=== PATIENT | female | born 1935 | race Hispanic/Latino ===

== ENCOUNTER → 2024-01-26 | Outpatient (CLI) | payer MEDICARE ==
[2024-01-26 15:42] LABS: BASOPHILS # (AUTO) 0.03 K/uL (0.00-0.20); BASOPHILS % (AUTO) 0.7 % (0.0-5.0); EOSINOPHILS # (AUTO) 0.11 K/uL (0.00-0.70); EOSINOPHILS % (AUTO) 2.7 % (0.0-8.0); HEMATOCRIT 37.2 % (36-48); IMMATURE GRANULOCYTE ABSOLUTE 0.01 K/uL (0-1); LYMPHOCYTES # (AUTO) 1.1 K/uL (1.0-4.8); LYMPHOCYTES % (AUTO) 27.3 % (21.0-51.0); MEAN CORPUSCULAR HEMOGLOBIN 31.3 pg (27.0-33.0); MEAN CORPUSCULAR HGB CONC 33.1 g/dL (32.0-36.0); MEAN CORPUSCULAR VOLUME 94.7 fL (79-99); MONOCYTES # (AUTO) 0.4 K/uL (0.1-1.0); MONOCYTES % (AUTO) 9.4 % (3.0-13.0); NEUTROPHILS # (AUTO) 2.5 K/uL (1.8-7.7); NEUTROPHILS % (AUTO) 59.7 % (40.0-77.0); PLATELET COUNT (AUTO) 102 K/uL (130-400); RED BLOOD CELL COUNT(AUTO) 3.93 MIL/uL (4.00-5.50); RED CELL DISTRIBUTION WIDTH 14.2 % (11.0-15.5); WHITE BLOOD COUNT (AUTO) 4.1 K/uL (4.8-10.8)
[2024-01-26 15:59] LABS: ALBUMIN 3.5 g/dL (3.5-5.0); BILIRUBIN,TOTAL 0.5 mg/dL (0.2-1.0); CREATININE 0.7 mg/dL (0.5-1.0); POTASSIUM 3.7 mmol/L (3.5-5.1); TOTAL PROTEIN, SERUM 6.6 g/dL (6.0-8.3)
[2024-01-26 16:02] LABS: INR 1.1 (0.85-1.15); PROTHROMBIN TIME 11.8 SEC (9.6-11.6)
[2024-01-26 16:03] LABS: PARTIAL THROMBOPLASTIN TIME 26.5 SEC (26.3-35.5)
== END | disposition home or self-care (01) ==
LOC: RAH 14:33
PROVIDERS: ATTEND Internal Medicine Gastroenterology
DX: R63.4 Abnormal weight loss (principal); R93.2 Abnormal findings on diagnostic imaging of liver and biliary tract
CPT/HCPCS: 36415; 71046; 80053; 82105; 85025; 85610; 85730

== ENCOUNTER → 2024-02-01 | Outpatient (CLI) | payer MEDICARE ==
[~2024-02-01] MED LIST: IOHEXOL 350 MG/ML 100ML INFUS..BTL IV ONE
== END | disposition home or self-care (01) ==
LOC: RAH 08:41
PROVIDERS: ATTEND Internal Medicine Gastroenterology
DX: K76.89 Other specified diseases of liver (principal); K80.20 Calculus of gallbladder without cholecystitis without obstruction; R93.2 Abnormal findings on diagnostic imaging of liver and biliary tract
CPT/HCPCS: 74170; Q9967; 74178

== ENCOUNTER 2024-09-12 19:46 | Emergency (ER) | payer MEDICARE ==
[~2024-09-12] VITALS: Ht 152.4 cm; Wt 44.0 kg
--- NOTE | 2024-09-12 20:41 | HMCIMG ---
CT MAXILLOFACIAL W/O CONTRAST Indication: FALL Technique: Multiple thin section axial images were performed through the face and paranasal sinuses. Coronal reconstructions were performed in soft tissue and bone windows, as well as sagittal reconstructions. CT Dose Index (CTDI): 22.11 mGy Dose Length Product (DLP): 450.8 total mGy Findings: Paranasal sinuses are unremarkable. There is no evidence of facial fracture. Left frontal subcutaneous hematoma without underlying fractures. Visualized intracranial contents are unremarkable. Impression: Left frontal subcutaneous hematoma without underlying fractures. This study was performed using dose reduction techniques to include automated exposure control and/or adjustment of the mA and/or kV according to patient size.
--- NOTE | 2024-09-12 21:08 | HMCIMG ---
Exam Type: KNEE 3VWS RT Clinical Information: FALL Comparison: None Findings: There is osteopenia. The examination is otherwise unremarkable. No fractures or dislocations are seen. No radiopaque foreign bodies are noted. Soft tissues are preserved. IMPRESSION: Osteopenia. Otherwise normal exam.
[2024-09-12 21:21] LABS: BASOPHILS # (AUTO) 0.02 K/uL (0.00-0.20); BASOPHILS % (AUTO) 0.4 % (0.0-5.0); EOSINOPHILS # (AUTO) 0.05 K/uL (0.00-0.70); EOSINOPHILS % (AUTO) 0.9 % (0.0-8.0); IMMATURE GRANULOCYTE ABSOLUTE 0.01 K/uL (0-1); LYMPHOCYTES # (AUTO) 0.9 K/uL (1.0-4.8); LYMPHOCYTES % (AUTO) 15.8 % (21.0-51.0); MEAN CORPUSCULAR HEMOGLOBIN 30.9 pg (27.0-33.0); MEAN CORPUSCULAR VOLUME 90.9 fL (79-99); MONOCYTES # (AUTO) 0.5 K/uL (0.1-1.0); MONOCYTES % (AUTO) 8.4 % (3.0-13.0); NEUTROPHILS # (AUTO) 4.1 K/uL (1.8-7.7); NEUTROPHILS % (AUTO) 74.3 % (40.0-77.0); PLATELET COUNT (AUTO) 90 K/uL (130-400); RED BLOOD CELL COUNT(AUTO) 3.85 MIL/uL (4.00-5.50); RED CELL DISTRIBUTION WIDTH 13.8 % (11.0-15.5); WHITE BLOOD COUNT (AUTO) 5.5 K/uL (4.8-10.8)
[2024-09-12 21:33] LABS: CREATININE 0.7 mg/dL (0.5-1.0); POTASSIUM 3.7 mmol/L (3.5-5.1)
--- NOTE | 2024-09-12 21:41 | HMCIMG ---
Exam Type: CT HEAD/BRAIN W/O CONTRAST Clinical Information: FALL Comparison: None CT Dose Index (CTDI): 57.33 mGy Dose Length Product (DLP): 956.79 total mGy-cm Findings: The examination shows atrophy. There is low attenuation throughout the periventricular white matter locations, consistent with chronic small vessel ischemic changes. No acute intra- or extra-axial fluid collections are seen. There is no evidence of acute or chronic hemorrhage. There is no mass effect or shift of midline structures. There are no areas to suggest acute infarct. The skull windows show no significant abnormalities. Left frontal subcutaneous hematoma without underlying fractures. IMPRESSION: 1. ATROPHY AND CHRONIC SMALL VESSEL ISCHEMIC CHANGES. This study was performed using dose reduction techniques to include automated exposure control and/or adjustment of the mA and/or kV according to patient size.
--- NOTE | 2024-09-12 22:13 | ERN ---
ED Note History of Present Illness Stated Complaint: C/O PAIN TO HEAD AND KNEES AFTER TRIPPING AND FALL Chief Complaint: Mechanical Fall Time Seen by MD: 19:57 Time Seen by Midlevel: 20:00 Dictation: 88-YEAR-OLD FEMALE WITH NO PAST MEDICAL HISTORY COMING IN AFTER A MECHANICAL FALL. PATIENT STATES SHE WAS TRYING TO GO UP A STEP WITHOUT HER CANE TRIPPED OVER THE STEP FELL FORWARD. NO LOC, PATIENT DENIES TAKING ANY BLOOD THINNERS. PATIENT IS COMPLAINING OF LEFT FRONTAL SCALP HEMATOMA AND BILATERAL KNEE PAIN. PER PATIENT THE INCIDENT HAPPENED AT 11:00 A.M., DAUGHTER CAME IN TO SEE HER LATER IN THE DAY AND THAT IS WHEN SHE SAW THE HEMATOMA AND DECIDED TO BRING HER IN FOR EVALUATION. PATIENT STATES AFTER HER FALL SHE CONTINUED HER ADLS WITH NO COMPLAINTS. Allergies: Coded Allergies: No Allergy Information Available (Verified Allergy, 05/17/12) Past Medical History Past Medical History: Gallstones, Other Additional Past Medical Hx: HX OF LOW PLATELETS Surgical History: None Review of System Dictation CONSTITUTIONAL: NEGATIVE FOR FEVER,CHILLS, AND WEIGHT LOSS EYES: NEGATIVE FOR INJURY, PAIN,REDNESS, AND DISCHARGE ENT: NEGATIVE FOR INJURY, FALLING TO LEFT EYE CARDIOVASCULAR: NEGATIVE FOR CHEST PAIN, PALPITATIONS, AND EDEMA RESPIRATORY: NEGATIVE FOR SHORTNESS OF BREATH, COUGH, AND WHEEZING, ABDOMEN/GI: NEGATIVE FOR ABDOMINAL PAIN, NAUSEA, VOMITING, DIARRHEA, AND CONSTI PATION BACK: NEGATIVE FOR INJURY AND PAIN : NEGATIVE FOR INJURY, BLEEDING AND DISCHARGE MS/EXTREMITY: NEGATIVE FOR INJURY AND DEFORMITY SKIN: NEGATIVE FOR RASH, AND DISCOLORATION NEURO: NEGATIVE FOR HEADACHE, WEAKNESS, NUMBNESS, TINGLING, AND SEIZURE PSYCH: NEGATIVE FOR SUICIDE IDEATION, HOMICIDAL IDEATION, AND HALLUCINATIONS Review of Systems: was completed Initial Vital Sign VS Vital Signs Date Time Temp Pulse Resp B/P (MAP) Pulse Ox O2 Delivery O2 Flow Rate FiO2 09/12/24 19:48 99.5 85 20 190/101 98 Room Air Physical Exam Dictation GENERAL: AWAKE, ALERT, NAD HEAD/FACE: A LEFT FRONTAL SCALP HEMATOMA EYES: PERRL, EOMI, VISION AT BASELINE, PERIORBITAL SWELLING, NO VISION CHANGES ACCORDING TO PATIENT ENT: ORAL CAVITY CLEAR, TMS CLEAR, NO SIGNS OF INFECTION NECK: TRACHEA MIDLINE, SUPPLE, NO NUCHAL RIGIDITY CARDIOVASCULAR: RRR, NORMAL S1/S2, NO MRGS, NO JVD RESPIRATORY: CTAB, NO RESPIRATORY DISTRESS, NO RALES OR WHEEZES ABDOMEN: SOFT, NON-TENDER, NON-DISTENDED, NORMAL BOWEL SOUNDS, NO GUARDING OR REBOUND. SKIN: WARM, DRY, NORMAL TURGOR, NO RASH MS/EXTREMITY: PULSES EQUAL, NO CYANOSIS, NEUROVASCULAR INTACT, FROM NEURO: COAX4, GCS 15, STRENGTH 5/5, CN 2-12 INTACT, NORMAL CEREBELLAR EXAM, NORMAL GAIT, PSYCH: NORMAL BEHAVIOR, MOOD, AND AFFECT NORMAL Results (Laboratory/Radiology) Laboratory/Radiology Laboratory Tests Test 09/12/24 21:15 White Blood Count 5.5 K/uL (4.8-10.8) Red Blood Count 3.85 MIL/uL (4.00-5.50) L Hemoglobin 11.9 g/dL (12.0-16.0) L Hematocrit 35.0 % (36-48) L Mean Corpuscular Volume 90.9 fL (79-99) Mean Corpuscular Hemoglobin 30.9 pg (27.0-33.0) Mean Corpuscular Hemoglobin Concent 34.0 g/dL (32.0-36.0) Red Cell Distribution Width 13.8 % (11.0-15.5) Platelet Count 90 K/uL (130-400) L Mean Platelet Volume 11.5 fL (7.5-10.5) H Immature Granulocyte % (Auto) 0.2 % (0-1) Neutrophils (%) (Auto) 74.3 % (40.0-77.0) Lymphocytes (%) (Auto) 15.8 % (21.0-51.0) L Monocytes (%) (Auto) 8.4 % (3.0-13.0) Eosinophils (%) (Auto) 0.9 % (0.0-8.0) Basophils (%) (Auto) 0.4 % (0.0-5.0) Neutrophils # (Auto) 4.1 K/uL (1.8-7.7) Lymphocytes # (Auto) 0.9 K/uL (1.0-4.8) L Monocytes # (Auto) 0.5 K/uL (0.1-1.0) Eosinophils # (Auto) 0.05 K/uL (0.00-0.70) Basophils # (Auto) 0.02 K/uL (0.00-0.20) Absolute Immature Granulocyte (auto 0.01 K/uL (0-1) Nucleated Red Blood Cells 0.0 % (0.0-0.19) Sodium Level 142 mmol/L (136-145) Potassium Level 3.7 mmol/L (3.5-5.1) Chloride Level 104 mmol/L (101-111) Carbon Dioxide Level 34 mmol/L (21-32) H Blood Urea Nitrogen 14 mg/dL (7-18) Creatinine 0.7 mg/dL (0.5-1.0) Glomerular Filtration Rate Calc 84 mL/min (>90) Random Glucose 115 mg/dL (70-105) H Total Calcium 9.2 mg/dL (8.5-10.1) Labs Reviewed?: Yes CT Scan Comment: [place] [address] [address] IMAGING REPORT Signed PATIENT: NEMO STAHL MR#: [id number] : 1935 SEX: F AGE: 88 LOCATION: ED ORDER 02 STATUS: REG [facility] REPORT#: [id number] SERVICE 01 REASON: FALL ORDERING PHYSICIAN: AUGUST GOLDEN NP PROCEDURE: MAXFACI WO - CT MAXILLOFACIAL W/O CONTRAST CT MAXILLOFACIAL W/O CONTRAST Indication: FALL Technique: Multiple thin section axial images were performed through the face and paranasal sinuses. Coronal reconstructions were performed in soft tissue and bone windows, as well as sagittal reconstructions. CT Dose Index (CTDI): 22.11 mGy Dose Length Product (DLP): 450.8 total mGy Findings: Paranasal sinuses are unremarkable. There is no evidence of facial fracture. Left frontal subcutaneous hematoma without underlying fractures. Visualized intracranial contents are unremarkable. Impression: Left frontal subcutaneous hematoma without underlying fractures. This study was performed using dose reduction techniques to include automated exposure control and/or adjustment of the mA and/or kV according to patient size. DICTATED BY: JOE EGAN MD DATE: 09/12/242037 ELECTRONICALLY SIGNED BY: JOE EGAN MD DATE: 09/12/242040 [place] [address] [id number] IMAGING REPORT Signed PATIENT: NEMO STAHL MR#: [id number] : 1935 SEX: F AGE: 88 LOCATION: ED ORDER 02 STATUS: REG ER [facility] REPORT#: [id number] SERVICE 01 REASON: FALL ORDERING PHYSICIAN: AUGUST GOLDEN NP PROCEDURE: KNEE 3V RT - KNEE 3VWS RT Exam Type: KNEE 3VWS RT Clinical Information: FALL Comparison: None Findings: There is osteopenia. The examination is otherwise unremarkable. No fractures or dislocations are seen. No radiopaque foreign bodies are noted. Soft tissues are preserved. IMPRESSION: Osteopenia. Otherwise normal exam. DICTATED BY: JOE EGAN MD DATE: 09/12/242105 ELECTRONICALLY SIGNED BY: JOE EGAN MD DATE: 09/12/242107 [address] [address] IMAGING REPORT Signed PATIENT: NEMO STAHL MR#: [id number] : 1935 SEX: F AGE: 88 LOCATION: ED ORDER 02 STATUS: REG ER REPORT#: [id number] SERVICE 01 REASON: FALL ORDERING PHYSICIAN: AUGUST GOLDEN NP PROCEDURE: HEAD WO - CT HEAD/BRAIN W/O CONTRAST Exam Type: CT HEAD/BRAIN W/O CONTRAST Clinical Information: FALL Comparison: None CT Dose Index (CTDI): 57.33 mGy Dose Length Product (DLP): 956.79 total mGy-cm Findings: The examination shows atrophy. There is low attenuation throughout the periventricular white matter locations, consistent with chronic small vessel ischemic changes. No acute intra- or extra-axial fluid collections are seen. There is no evidence of acute or chronic hemorrhage. There is no mass effect or shift of midline structures. There are no areas to suggest acute infarct. The skull windows show no significant abnormalities. Left frontal subcutaneous hematoma without underlying fractures. IMPRESSION: 1. ATROPHY AND CHRONIC SMALL VESSEL ISCHEMIC CHANGES. This study was performed using dose reduction techniques to include automated exposure control and/or adjustment of the mA and/or kV according to patient size. DICTATED BY: JOE EGAN MD DATE: 09/12/242034 ELECTRONICALLY SIGNED BY: JOE EGAN MD DATE: 09/12/242140 ED Course ED Course Orders Procedure Category Date Status Time Ct Head/Brain W/O CT 09/12/24 Resulted Contrast 20:02 Ct Maxillofacial W/O CT 09/12/24 Resulted Contrast 20:02 Knee 3vws Rt RAD 09/12/24 Resulted 20:02 Cbc With Differential LAB 09/12/24 Complete 20:37 Basic Metabolic Panel LAB 09/12/24 Complete 20:37 Vital Signs Date Time Temp Pulse Resp B/P (MAP) Pulse Ox O2 Delivery O2 Flow Rate FiO2 09/12/24 19:48 99.5 85 20 190/101 98 Room Air Medical Decision Making MDM MDM: 88-YEAR-OLD FEMALE WITH NO PAST MEDICAL HISTORY COMING IN AFTER A MECHANICAL FALL. PATIENT STATES SHE WAS TRYING TO GO UP A STEP WITHOUT HER CANE TRIPPED OVER THE STEP FELL FORWARD. NO LOC, PATIENT DENIES TAKING ANY BLOOD THINNERS. PATIENT IS COMPLAINING OF LEFT FRONTAL SCALP HEMATOMA AND BILATERAL KNEE PAIN. PER PATIENT THE INCIDENT HAPPENED AT 11:00 A.M., DAUGHTER CAME IN TO SEE HER LATER IN THE DAY AND THAT IS WHEN SHE SAW THE HEMATOMA AND DECIDED TO BRING HER IN FOR EVALUATION. PATIENT STATES AFTER HER FALL SHE CONTINUED HER ADLS WITH NO COMPLAINTS. ALL CT SCANS ARE NEGATIVE, X-RAY OF THE RIGHT KNEE NEGATIVE. CBC SHOWS NO LEUKOCYTOSIS, NO ANEMIA, MILD THROMBOCYTOPENIA HOWEVER PATIENT HAS A HISTORY OF THROMBOCYTOPENIA OF UNKNOWN ETIOLOGY. NO ACTIVE BLEEDING. MANUALLY OPEN LEFT EYE, NO SUBCONJUNCTIVAL HEMORRHAGE, PERRLA, NO VISION CHANGES, EOM INTACT. DISCUSSED FINDINGS WITH PATIENT AND DAUGHTER AT BEDSIDE, EDUCATED ON RED FLAG SYMPTOMS TO RETURN BACK TO THE ER. FOLLOW UP WITH PCP IN 1-2 DAYS. DIFFERENTIAL DIAGNOSIS: ICH, MAXILLOFACIAL INJURY FRONTAL SCALP HEMATOMA RATIONALE: TESTS CONSIDERED AND ORDERED SECONDARY TO SHARED DECISION MAKING INCLUDE: PREVIOUS OUTSIDE RECORDS REVIEWED: OLD ER VISITS. RISK OF COMPLICATION AND/OR MORBIDITY OR MORTALITY OF PATIENT MANAGEMENT: NONE MEDICATIONS-PER MEDICATION RECONCILIATION NEED FOR HOSPITALIZATION: PATIENT DOES NOT MEET CRITERIA FOR HOSPITALIZATION. NEED FOR EMERGENCY MAJOR/MINOR SURGERY: NO THERE ARE NO SOCIAL CONCERNS WITH THIS PATIENT. PRESCRIPTION DRUG MANAGEMENT PRESCRIPTIONS WILL INCLUDE SYMPTOMATIC CARE PATIENT'S PRIOR EXTERNAL MEDICAL RECORDS FROM OTHER ER VISITS WERE REVIEWED BY ME INDICATED. PRIOR TESTING AND RESULTS FROM PREVIOUS VISITS WERE REVIEWED. PRIOR TESTS WERE TAKEN INTO ACCOUNT WITH MEDICAL DECISION MAKING AND RESOURCE UTILIZATION, INDEPENDENT HISTORIAN/HISTORIANS WERE USED TO OBTAIN COMPLETE MEDICAL HISTORY. I INDEPENDENTLY INTERPRETED THE TEST THAT WERE PERFORMED, RESULTS WERE REVIEWED BY ME AND CONSIDERED FINDINGS ON RADIOLOGY IF ORDERED. MEDICAL MANAGEMENT AND EXAMINATION INTERPRETATION DISCUSSIONS WERE HAD BY ME WITH OTHER QUALIFIED HEALTHCARE PROFESSIONALS INDICATED FOR THE PATIENT'S CARE. DX & DISP Disposition: Discharge Departure Impression: Primary Impression: Fall Additional Impressions: Scalp hematoma, Knee contusion Condition: Stable Additional Instructions: PLEASE RETURN TO THE EMERGENCY ROOM IF PATIENT HAS NAUSEA, VOMITING, ALTERED MENTAL STATUS, VISION CHANGES. OTHERWISE FOLLOW UP WITH YOUR PCP IN 1-2 DAYS. Referrals: ARIEL BROWN MD (PCP) Time of Disposition: 22:12 I have reviewed the case, and I agree with, Diagnosis and Plan AUGUST GOLDEN NP Sep 12, 2024 22:13
[2024-09-12 22:26] VITALS: BP 153/91; PULSE 82; RESP 18; TEMP 98.6; O2SAT 98
== END 2024-09-12 22:24 | disposition home or self-care (01) ==
LOC: EDH 19:46
DX: S00.03XA Contusion of scalp, initial encounter (principal); S80.01XA Contusion of right knee, initial encounter; W01.0XXA Fall on same level from slipping, tripping and stumbling without subsequent striking against object, initial encounter; Y93.89 Activity, other specified; Y92.89 Other specified places as the place of occurrence of the external cause; Y99.8 Other external cause status
CPT/HCPCS: 36415; 70450; 70486; 73562; 80048; 85025; 99284

== ENCOUNTER 2025-07-12 23:06 | Emergency (ER) | payer MEDICARE ==
[~2025-07-12] VITALS: Ht 149.9 cm; Wt 44.0 kg
--- NOTE | 2025-07-12 23:12 | NUR ---
UA CUP PROVIDED
--- NOTE | 2025-07-12 23:18 | NUR ---
UA COLLECTED AND SENT
[2025-07-12 23:25] LABS: APPEARANCE,URINE CLOUDY (CLEAR); GLUCOSE, URINE (UA) NEGATIVE (NEGATIVE); LEUKOCYTE ESTERASE ,URINE NEGATIVE Leu/uL (NEGATIVE); NITRATE,URINE NEGATIVE (NEGATIVE); OCCULT BLOOD,URINE NEGATIVE (NEGATIVE)
[2025-07-12 23:29] LABS: ADD UA MICROSCOPIC YES
[2025-07-12 23:30] LABS: SQUAMOUS EPITHELIAL CELL,UR RARE /HPF (0-2)
[2025-07-12 23:38] LABS: IMMATURE GRANULOCYTE ABSOLUTE 0.00 K/uL (0-1); NUCLEATED RED BLOOD CELLS 0.0 % (0.0-0.19); PLATELET COUNT (AUTO) 99 K/uL (130-400); RED BLOOD CELL COUNT(AUTO) 4.32 MIL/uL (4.00-5.50); RED CELL DISTRIBUTION WIDTH 14.4 % (11.0-15.5); WHITE BLOOD COUNT (AUTO) 3.9 K/uL (4.8-10.8)
[2025-07-12 23:45] LABS: CREATININE 0.5 mg/dL (0.5-1.0); GLOMERULAR FILTR. RATE CALC 90.0 mL/min (>90); GLUCOSE,RANDOM 93.0 mg/dL (70-105); SODIUM SERUM 144.0 mmol/L (136-145); UREA NITROGEN, BLOOD 11.0 mg/dL (7-18)
--- NOTE | 2025-07-13 00:53 | ERN ---
ED Note History of Present Illness Stated Complaint: WEAKNESS, FREQUENT URINATION , DIZZINESS Chief Complaint: Multiple Complaints Time Seen by MD: 23:16 Dictation: This is a very pleasant 89-year-old female brought to the emergency room by her daughter with complaints of generalized weakness and increased frequency of urination for the past 2 days. Also reported some dizziness especially when she moves from [id number] in bed. She denied any fevers nausea vomitings diarrhea. No chills rigors. No dysuria hematuria. No bleeding. The daughter stated that patient felt somewhat run down for the past few days. And slept well either Temperature 97.3 pulse 66 respirations 18 blood pressure 169/68 with a pulse oximetry of 100% on room air Chronic medical problems include hypercholesterolemia, history of gallstones and chronic thrombocytopenia. Allergies: Coded Allergies: No Allergy Information Available (Verified Allergy, 05/17/12) Home Meds Active Scripts Levofloxacin (Levaquin 750Mg Tabs) 750 Mg Tablet, 1 TAB PO DAILY for 7 Days, #7 TAB 0 Refills Prov:RHONDA LEES PAC 01/20/25 Past Medical History Past Medical History: Gallstones, High Cholesterol, Kidney Stone, Other Additional Past Medical Hx: HX OF LOW PLATELETS Surgical History: None Family History: Negative Social History: Negative History: Not Applicable RN Note Reviewed/Agreed w/PFSH: Yes Review of System Dictation Constitutional: Negative for fever,chills, and weight loss generalized body weakness Eyes: Negative for injury, pain,redness, and discharge ENT: Negative for injury,pain or swelling Cardiovascular: Negative for chest pain, palpitations, and edema Respiratory: Negative for shortness of breath, cough, and wheezing, Abdomen/GI: Negative for abdominal pain, nausea, vomiting, diarrhea, and constipation Back: Negative for injury and pain : Negative for injury, bleeding and discharge MS/Extremity: Negative for injury and deformity Skin: Negative for rash, and discoloration Neuro: Negative for headache, weakness, numbness, tingling, and seizure Psych: Negative for suicide ideation, homicidal ideation, and hallucinations Initial Vital Sign VS Vital Signs Date Time Temp Pulse Resp B/P (MAP) Pulse Ox O2 Delivery O2 Flow Rate FiO2 07/12/25 23:08 97.3 66 18 169/88 100 Room Air 07/13/25 01:24 0 21 Physical Exam Dictation General: awake, alert, NAD frail elderly female who is very pleasant Head/Face: Normocephalic, atraumatic Eyes: PERRL, EOMI, vision at baseline ENT: oral cavity clear, TMs clear, no signs of infection Neck: Trachea midline, supple, no nuchal rigidity Cardiovascular: RRR, normal S1/S2, No MRGs, no JVD Respiratory: CTAB, no respiratory distress, No rales or wheezes Abdomen: Soft, non-tender, non-distended, normal bowel sounds, no guarding or rebound. Skin: Warm, dry, normal turgor, no rash MS/Extremity: Pulses equal, no cyanosis, neurovascular intact, FROM Neuro: COAx4, GCS 15, strength 5/5, CN 2-12 intact, normal cerebellar exam, normal gait, Psych: Normal behavior, mood, and affect normal Extremities-trace edema without any palpable cords, Homans sign is negative Results (Laboratory/Radiology) Laboratory/Radiology Laboratory Tests Test 07/12/25 23:18 07/12/25 23:23 Urine Color LIGHT-YELLOW (YELLOW) Urine Appearance CLOUDY (CLEAR) H Urine pH 8.0 (5.0-8.0) Urine Specific [place] 1.007 (1.001-1.031) Urine Protein NEGATIVE mg/dL (NEGATIVE) Urine Glucose (UA) NEGATIVE mg/dL (NEGATIVE) Urine Ketones NEGATIVE mg/dL (NEGATIVE) Urine Occult Blood NEGATIVE (NEGATIVE) Urine Nitrate NEGATIVE (NEGATIVE) Urine Bilirubin NEGATIVE mg/dL (NEGATIVE) Urine Urobilinogen 0.2 mg/dL (0.2-1.0) Urine Leukocyte Esterase NEGATIVE Steffany/uL Urine RBC 2-5 /HPF (0-1) H Urine WBC 2-5 /HPF (0-1) H Urine Squamous Epithelial Cells RARE /HPF (0-2) Urine Bacteria None /HPF (None Seen) White Blood Count 3.9 K/uL (4.8-10.8) L Red Blood Count 4.32 MIL/uL (4.00-5.50) Hemoglobin 13.1 g/dL (12.0-16.0) Hematocrit 39.6 % (36-48) Mean Corpuscular Volume 91.7 fL (79-99) Mean Corpuscular Hemoglobin 30.3 pg (27.0-33.0) Mean Corpuscular Hemoglobin Concent 33.1 g/dL (32.0-36.0) Red Cell Distribution Width 14.4 % (11.0-15.5) Platelet Count 99 K/uL (130-400) L Mean Platelet Volume 12.0 fL (7.5-10.5) H Immature Granulocyte % (Auto) 0.0 % (0-1) Neutrophils (%) (Auto) 59.6 % (40.0-77.0) Lymphocytes (%) (Auto) 28.9 % (21.0-51.0) Monocytes (%) (Auto) 8.4 % (3.0-13.0) Eosinophils (%) (Auto) 2.6 % (0.0-8.0) Basophils (%) (Auto) 0.5 % (0.0-5.0) Neutrophils # (Auto) 2.3 K/uL (1.8-7.7) Lymphocytes # (Auto) 1.1 K/uL (1.0-4.8) Monocytes # (Auto) 0.3 K/uL (0.1-1.0) Eosinophils # (Auto) 0.10 K/uL (0.00-0.70) Basophils # (Auto) 0.02 K/uL (0.00-0.20) Absolute Immature Granulocyte (auto 0.00 K/uL (0-1) Nucleated Red Blood Cells 0.0 % (0.0-0.19) Sodium Level 144 mmol/L (136-145) Potassium Level 3.3 mmol/L (3.5-5.1) L Chloride Level 104 mmol/L (101-111) Carbon Dioxide Level 31 mmol/L (21-32) Blood Urea Nitrogen 11 mg/dL (7-18) Creatinine 0.5 mg/dL (0.5-1.0) Glomerular Filtration Rate Calc 90 mL/min (>90) Random Glucose 93 mg/dL (70-105) Total Calcium 9.8 mg/dL (8.5-10.1) Labs Reviewed?: Yes ED Course ED Course Orders Procedure Category Date Status Time Cbc With Differential LAB 07/12/25 Complete 23:12 Basic Metabolic Panel LAB 07/12/25 Complete 23:12 Urinalysis Profile LAB 07/12/25 Complete 23:12 Potassium Bicarb/Cit PHA 07/13/25 Complete Ac 25meq (K-Lyte Ta 01:30 Current Medications Medications (Trade) Dose Ordered Sig/Ryan Route PRN Reason Start Time Stop Time Status Last Admin Dose Admin Potassium Bicarbonate (K-Lyte Tablet Eff 25 Meq Tablet.eff) 25 meq ONCE ONCE PO 07/13/25 01:30 07/13/25 01:31 DC 07/13/25 01:29 Vital Signs Date Time Temp Pulse Resp B/P (MAP) Pulse Ox O2 Delivery O2 Flow Rate FiO2 07/13/25 01:24 97.9 67 18 157/92 99 Room Air* 0 21 07/12/25 23:08 97.3 66 18 169/88 100 Room Air Medical Decision Making MDM Differential diagnosis: Anemia, dehydration, electrolyte abnormalities, orthostatic hypotension, adult failure to thrive, aortic valve disease, B12 and folate deficiency, hypothyroidism This is a very pleasant 89-year-old female brought to the emergency room by her daughter with complaints of generalized weakness and increased frequency of urination for the past 2 days. Also reported some dizziness especially when she moves from [id number] in bed. She denied any fevers nausea vomitings diarrhea. No chills rigors. No dysuria hematuria. No bleeding. The daughter stated that patient felt somewhat run down for the past few days. And slept well either Temperature 97.3 pulse 66 respirations 18 blood pressure 169/68 with a pulse oximetry of 100% on room air Chronic medical problems include hypercholesterolemia, history of gallstones and chronic thrombocytopenia. 12:50 a.m. labs reviewed CBC shows a white count of 3.9 hemoglobin 13.1 platelets 99 BNP 7 is significant for a potassium of 3.3. Urinalysis is unremarkable for any UTI I updated the patient and her daughter on the workup so far and possibilities of perhaps the weather changes, sleep interruptions, mild electrolyte abnormalities may all be contributing to her symptoms. No history of any vertigo symptoms are unsteady gait at this time. We will replete potassium and discharge to follow up with her primary care physician Rationale: Tests considered and ordered secondary to shared decision making include: Labs and urinalysis Previous outside records reviewed: Old ER visits. Risk of complication and/or morbidity or mortality of patient management: None Medications-Per medication reconciliation Need for hospitalization: Patient does not meet criteria for hospitalization. Need for emergency major/minor surgery: No There are no social concerns with this patient. Prescription drug management Prescriptions will include symptomatic care Patient's prior external medical records from other ER visits were reviewed by me as indicated. Prior testing and results from previous visits were reviewed. Prior tests were taken into account with medical decision making and resource utilization, independent historian/historians were used to obtain complete medical history. I independently interpreted the test that were performed, results were reviewed by me and considered findings on radiology if ordered. Medical management and examination interpretation discussions were had by me with other qualified healthcare professionals as indicated for the patient's care. Problem List Problem List: (1) Generalized weakness (2) Hypokalemia DX & DISP Disposition: Discharge Departure Impression: Primary Impression: Generalized weakness Additional Impression: Hypokalemia Condition: Stable Additional Instructions: Patient and the caregiver have been informed of all the diagnostic tests and the imaging conducted during the today's visit to the emergency room and has verbalized understanding of the results I have personally reviewed and interpreted all diagnostic exams performed here in the ER today as well as the vital signs documented by the nursing staff. The patient is now being d ischarged to home and should follow up with the primary care physician or the specialist as directed by the ER staff. Referrals: ARIEL BROWN MD (PCP) NEGRITA SALDIVAR MD Jul 13, 2025 00:53
--- NOTE | 2025-07-13 01:05 | NUR ---
REPORT TO LOAN BAZAN
--- NOTE | 2025-07-13 01:05 | NUR ---
PT ORIENTED TO ROOM, CALL LIGHT WITHIN REACH. BED IN LOW POSITION. ONE RAIL UP WARM BLANKET PROVIDED
[2025-07-13 02:08] VITALS: BP 155/89; PULSE 64; RESP 18; TEMP 97.9; O2SAT 100
== END 2025-07-13 02:09 | disposition home or self-care (01) ==
LOC: EDH 23:06
DX: R53.1 Weakness (principal); E87.6 Hypokalemia; E78.00 Pure hypercholesterolemia, unspecified
CPT/HCPCS: 36415; 80048; 81001; 85025; 99283